=== PATIENT | female | born 1985 | race African-American/Black ===

== ENCOUNTER 2019-06-13 14:18 | Emergency (ER) | payer SELFPAY ==
[~2019-06-13] VITALS: Ht 167.6 cm; Wt 96.0 kg
[2019-06-13 18:00] VITALS: BP 134/75
== END 2019-06-13 18:00 | disposition home or self-care (01) ==
LOC: ER 14:18
DX: B34.9 Viral infection, unspecified (principal); J45.909 Unspecified asthma, uncomplicated
CPT/HCPCS: 99283

== ENCOUNTER 2019-11-08 09:23 | Emergency (ER) | payer MEDICAID ==
[~2019-11-08] VITALS: Ht 167.6 cm; Wt 98.0 kg
[2019-11-08] MEDS ORDERED: DIAZEPAM 5 MG TABLET PO ONE (10:15)
[2019-11-08] MEDS ORDERED: KETOROLAC 60MG/2ML VIAL IM ONE (10:15)
[2019-11-08 11:30] VITALS: BP 145/87
== END 2019-11-08 11:35 | disposition home or self-care (01) ==
LOC: ER 09:32
DX: M54.5 Low back pain (principal); Z87.440 Personal history of urinary (tract) infections; Z98.890 Other specified postprocedural states
CPT/HCPCS: 72100; 81025; 96372; 99283; J1885

== ENCOUNTER 2021-10-10 12:37 | Emergency (ER) | payer MEDICAID ==
[~2021-10-10] VITALS: Ht 167.6 cm; Wt 100.0 kg
[2021-10-10 12:46] VITALS: BP 142/87
== END 2021-10-10 15:00 | disposition home or self-care (01) ==
LOC: ER 12:37
DX: S90.112A Contusion of left great toe without damage to nail, initial encounter (principal); Z98.890 Other specified postprocedural states; W22.8XXA Striking against or struck by other objects, initial encounter; Y93.89 Activity, other specified; Y92.89 Other specified places as the place of occurrence of the external cause; Y99.8 Other external cause status
CPT/HCPCS: 73630; 99283

== ENCOUNTER 2023-11-20 15:48 | Emergency (ER) | payer MEDICAID, OTHER ==
[~2023-11-20] VITALS: Ht 170.2 cm; Wt 91.0 kg
[2023-11-20 16:05] VITALS: O2SAT 100
[2023-11-20] MEDS ORDERED: KETOROLAC 60MG/2ML VIAL IM ONE (18:00)
[2023-11-20 19:37] LABS: CLARITY URINE CLEAR (CLEAR); COLOR URINE YELLOW (YELLOW); GLUCOSE URINE NEGATIVE (NEGATIVE); KETONES URINE NEGATIVE (NEGATIVE); PH URINE 6.5 (4.5-8.0); PROTEIN URINE NEGATIVE (NEGATIVE)
[2023-11-20 19:38] LABS: LEUKOCYTE ESTERASE URINE TRACE (NEGATIVE); NITRITE URINE NEGATIVE (NEGATIVE); OCCULT BLOOD URINE NEGATIVE (NEGATIVE); UROBILINOGEN URINE 0.2 E.U./dL (0.2-1.0)
[2023-11-20 19:51] LABS: BACTERIA URINE 2+; RBC URINE 0-2 /hpf (0-2); SQUAMOUS EPITHELIAL CELL URINE 1+ /lpf (RARE/1+)
[2023-11-20] MEDS ORDERED: CYCL10TA21 MT (20:02)
[2023-11-20] MEDS ORDERED: IBUP-2029 MT (20:02)
[2023-11-20] MEDS ORDERED: CEPH500C2 MT (20:02)
[2023-11-20 20:33] VITALS: BP 121/89; PULSE 98; RESP 18; TEMP 98.6
== END 2023-11-20 20:35 | disposition home or self-care (01) ==
LOC: ER 15:48
DX: M54.50 Low back pain, unspecified (principal)
CPT/HCPCS: 99284; 81003; 81025; 72100; 96372; J1885